=== PATIENT | male | born 1985 | race African-American/Black ===

== ENCOUNTER → 2018-02-22 08:45 | Outpatient (CLI) | payer OTHER, SELFPAY ==
--- NOTE | 2018-02-22 08:50 | RAD_ITS ---
STUDY: X-RAY - RIGHT ANKLE REASON FOR EXAM: Male, 32 years old. Pain, injury TECHNIQUE: 3 view(s) of the ankle. COMPARISON: 03/30/2016 FINDINGS: There is chronic ossification at the soft tissues adjacent to the periosteal surface of the posterior medial distal tibia/medial malleolus. There is no acute fracture. There is no osseous erosion. The ankle mortise is intact. RAD/Ankle min 3 Views IMPRESSION: Chronic posttraumatic changes No acute fracture No radiographic evidence of osteomyelitis Electronically Signed: Eddie Das MD at 10:28 EDT Tel , Service support ,
== END ==
PROVIDERS: Family Provider Family Medicine; PCP Family Medicine; Visit Provider Orthopaedic Surgery
DX: M25.571 Pain in right ankle and joints of right foot (principal)
CPT/HCPCS: 73610

== ENCOUNTER → 2018-03-08 12:48 | Outpatient (CLI) | payer OTHER, SELFPAY ==
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
== END ==
PROVIDERS: Family Provider Family Medicine; PCP Family Medicine; Visit Provider Orthopaedic Surgery
DX: M25.571 Pain in right ankle and joints of right foot (principal); M24.071 Loose body in right ankle; G89.29 Other chronic pain
CPT/HCPCS: 73721

== ENCOUNTER → 2025-01-22 | Outpatient (CLI) | payer BC, SELFPAY ==
[2025-01-22 13:08] LABS: Absolute Lymphocyte Count 1.35 X10^3/uL (0.83-4.51); Absolute Neutrophil Count 2.1 X10^3/uL (2.0-7.7); Basophil# 0.07 X10^3/uL; Basophil% 1.8 % (0-1); Eosinophil# 0.09 X10^3/uL; Eosinophils% 2.3 % (0-5); Hematocrit 41.7 % (40-54); Hemoglobin 13.3 g/dL (13.0-16.5); Lymphocyte # 1.35 X10^3/ul (0.83-4.51); Lymphocyte % 34.4 % (19-41); Mean Corp Hgb Conc 31.9 g/dL (32-36); Mean Corpuscular Hgb 26.7 pg (27.0-32.0); Mean Corpuscular Volume 83.6 fL (80-94); Monocyte# 0.33 X10^3/uL; Monocyte% 8.4 % (0-10); NRBC Flagged by Analyzer 0 % (0-5); Neutrophil # 2.07 X10^3/uL (2.7-7.7); Neutrophil % 52.8 % (47-70); Platelet Count 182 K/mm3 (150-450); RBC Distribution Width SD 42.5 fl (35.1-43.9); Red Blood Count 4.99 M/mm3 (4.6-6.2); White Blood Count 3.9 K/mm3 (4.4-11.0)
[2025-01-22 13:47] LABS: Cholesterol 176 mg/dL (<=200); High Density Lipoprotein 62 mg/dL; Low Density Lipoprotein Calc. 103 mg/dL; PSA,Total - Annual Screen 0.46 ng/mL (0.02-4.00); Triglycerides 55 mg/dL; Very Low Density Lipoprotein 11 mg/dL (5-40); cholesterol:hdl ratio screen 2.84
[2025-01-22 14:16] LABS: ALB/GLOB Ratio 1.8 RATIO (0.9-2.4); AST(SGOT) 26 U/L (<=37); Alanine Aminotransfer ALT/SGPT 12 U/L (<=46); Albumin, Serum 4.5 g/dL (3.5-5.0); Alkaline Phosphatase 68 U/L (40-129); Anion Gap 11 (5-15); BUN 14 mg/dL (4-19); BUN/Creat Ratio 11.8 RATIO (10-20); Calcium,Total 9.2 mg/dL (7.6-11.0); Carbon Dioxide 24.8 mmol/L (21.0-32.0); Chloride 106 mmol/L (98-108); Creatinine, Serum 1.14 mg/dL (0.70-1.20); EST Glomerular Filtration Rate 83 (>60); Globulin 2.6 g/dL (2.2-4.2); Glucose 91 mg/dL (70-99); Protein, Total 7.1 g/dL (5.9-8.4); Sodium Level 141 mmol/L (133-145); Total Bilirubin 0.44 mg/dL (0.00-1.30)
[2025-01-22 20:34] LABS: Hemoglobin A1c 5.7 % (<=5.6)
== END | disposition home or self-care (01) ==
LOC: VSLAB 09:05
PROVIDERS: PCP Family Medicine; Visit Provider Family Medicine
DX: Z13.6 Encounter for screening for cardiovascular disorders (principal); Z13.228 Encounter for screening for other metabolic disorders; Z12.5 Encounter for screening for malignant neoplasm of prostate
CPT/HCPCS: 36415; 80053; 80061; 83036; 84153; 84443; 85025; G0103

== ENCOUNTER 2025-03-25 21:39 | Emergency (ER) | payer BC, MEDICAID, SELFPAY ==
[2025-03-25 21:39] VITALS: BP 143/80; PULSE 64; RESP 18; TEMP 36.2; O2SAT 100; BMI 27.3
--- NOTE | 2025-03-25 21:54 | EDS_ITS ---
HPI History of Present Illness Chief Complaint: Shortness of Breath Informant: patient Onset/Context/Timing Onset: Today Context: Sudden Onset Timing: Continuous Quality: Sharp Location: Right lower ribs Worsened by: Deep breathing Relieved by: Nothing Narrative Narrative: Patient presents with right rib pain that began tonight. Patient states he fell and landed on his right ribs. Patient describes his pain as sharp. Patient states it is worse with deep breathing. Patient states it is mainly over the right lower ribs. Patient denies any shortness of breath. Patient states it just hurts to breathe. Patient admits to some chills. Patient denies any fevers. Patient denies any nausea or vomiting. Patient denies any head injury or loss of consciousness. Patient denies any other injuries. [facility] Medical History Adjustment disorder Encounter for sterilization Difficulty walking involving foot Pain of right lower extremity due to injury Local infection of wound Fracture of lower limb, open Foreign body of hand Home Medications ?Medication ?Instructions ?Recorded ?Last Taken ?Type naproxen 500 mg tablet 500 mg PO BID PRN #20 tabs 0 03/25/25 Unknown Rx Allergy/AdvReac Type Severity Reaction Status Date / Time No Known Allergies Allergy Verified 03/25/25 21:39 Surgical History ankle surgery Social History Smoking Status: Current every day smoker tobacco type: cigarettes alcohol intake: never substance use type: does not use ROS ROS ED Constitutional Constitutional ED: Reports chills and subjective; Denies fever(s) Eyes Eyes: Denies blurry vision or change in vision ENT ENT ED: Denies rhinorrhea or sore throat Cardiovascular Cardiovascular: Reports chest pain; Denies palpitations Respiratory/Chest Respiratory/Chest: Reports cough; Denies dyspnea Gastrointestinal Gastrointestinal: Denies nausea or vomiting Genitourinary Genitourinary ED: Denies dysuria or hematuria Musculoskeletal Musculoskeletal: Denies back pain or neck pain Integumentary Denies abscess or rash Neurologic Neurologic: Denies headache(s) or weakness Allergic/Immunologic Allergic/Immunologic ED: Denies mouth swelling or urticaria EXAM Physical Exam Const Vital Signs: 03/25/25 21:39 03/25/25 21:55 03/25/25 23:39 Temperature 97.2 F L Temperature Source Temporal Pulse Rate 64 77 Respiratory Rate 18 16 Respiratory Effort Normal Respiratory Depth Normal Respiratory Pattern Normal Blood Pressure 143/80 H 130/80 H Blood Pressure Mean 101 96 Pulse Ox 100 99 Oxygen Delivery Method Room Air Room Air Room Air Positive well nourished and well developed General Appearance ED: well developed and NAD HEENT Reports moist mucous membranes Neck supple and no JVD Chest Wall Chest Narrative: There is tenderness over the right lower ribs along the costochondral junction. There is no bony crepitance or step-off. There is no edema or ecchymosis. There is no subcutaneous emphysema noted. Resp normal respiratory effort Auscultation: diminished lung sounds right Cardio regular rate and regular rhythm GI non-tender and non-distended Palpation: soft Neuro oriented x3, CN's II-XII intact bilaterally and no sensory deficits noted Sensorium / Orientation: alert Motor Exam: strength 5/5 throughout Psych mental status grossly normal MDM MDM MDM Narrative Medical decision making narrative: Differential diagnosis includes rib fracture, contusion, pneumothorax, and costochondritis. X-rays of the right ribs and chest will be obtained to assess for rib fracture and pneumothorax. Radiography Diagnostic Testing: Clinical Impression(s) from Imaging Studies Ribs w/Chest X-Ray 03/25/25 22:20 IMPRESSION: No evidence of acute rib fracture. Reading Location: [place] [id number] X-rays of the right ribs were obtained. There are 5 views. On my independent interpretation, there is no acute rib fracture. There is no pneumothorax. There is no acute cardiopulmonary process. Radiologist also interpreted the x- rays and agrees. Treatment and Re-Evaluation :: Patient was given a dose of Naprosyn here. Patient was advised of his findings. Patient was given prescription for Naprosyn. Patient was instructed to use ice to the right ribs. Patient was instructed to take 10-15 deep breaths every hour while awake to prevent atelectasis and pneumonia. Patient was instructed to follow-up with his primary care physician in 5 to 7 days. Patient was instructed to return if worse in any way. Patient understood and was agreeable with the plan. All questions were answered. Discharge Plan Triage Chief Complaint: Shortness of Breath ED Provider: Dougie Noel Dx/Rx/DC Orders Clinical Impression: Contusion of chest wall, Tobacco use Instructions: ED Bruise, Rib Prescriptions: New naproxen 500 mg tablet 500 mg PO BID PRN Qty: 20 0RF Primary Care Provider: Cherelle Wilkins Referrals: Cherelle Wilkins, DO [Primary Care Provider] - 5-7 Days Print Language: Bel[place]ian Disposition Disposition: Home, Self Care
--- NOTE | 2025-03-25 22:20 | RAD_ITS ---
PROCEDURE: RIBS UNI MIN 3V W/PA CHEST 03/25/2025 REASON FOR EXAM: INJURY TECHNIQUE: Frontal and bilateral oblique views of the bilateral ribs. COMPARISON: None. FINDINGS: Findings: Heart is normal in size. The mediastinum is normal in contour. The lungs are clear. Other: No evidence of acute rib fracture. RAD/Ribs Uni Min 3V w/PA Chest IMPRESSION: No evidence of acute rib fracture. Reading Location: [place] [id number]
[2025-03-25] MEDS: Naproxen 500 MG Tablet PO (22:48)
[2025-03-25 23:39] VITALS: BP 130/80; PULSE 77; RESP 16; O2SAT 99
== END 2025-03-26 00:08 | disposition home or self-care (01) ==
PROVIDERS: Emergency Provider Emergency Medicine; PCP Family Medicine; Visit Provider Emergency Medicine
DX: S20.211A Contusion of right front wall of thorax, initial encounter (principal); W19.XXXA Unspecified fall, initial encounter; F17.210 Nicotine dependence, cigarettes, uncomplicated
CPT/HCPCS: 71101; 99282

== ENCOUNTER → 2025-05-27 | Outpatient (CLI) | payer MEDICAID, SELFPAY ==
[2025-05-27 13:06] LABS: HIV Nonreactive (Nonreactive); Syphilis Antibodies Nonreactive (Nonreactive)
--- OUTSIDE RECORDS SUMMARY | 2025-05-27 17:43 | XMS RPT_ITS | CCD ---
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 LIPID PANEL, NONFASTINGon Cholesterol [Mass/Vol] 163 mg/dL <200 mg/dL [facility] HDL Cholesterol, Nonfasting 54 mg/dL >39 mg/dL [facility] LDL Cholesterol, Nonfasting 90 mg/dL <100 mg/dL [facility] LDL/HDL Ratio, Nonfasting 1.67 mg/dL <2.54 mg/dL [facility] Non HDL Cholesterol, Nonfasting 109 mg/dL <130 mg/dL [facility] Total Chol/HDL Ratio, Nonfasting 3.02 mg/dL <5.10 mg/dL [facility] Triglycerides, Nonfasting 94 mg/dL <150 mg/dL [facility] VLDL Cholesterol, Nonfasting 19 mg/dL <30 mg/dL [facility] Cholesterol [Mass/Vol] 163 mg/dL Normal <200 [facility] Comment on above: Order Comment: Speci men Type: BLOOD SPECIMEN Ordering Facility: [facility] Address: [address] [place] [address] Result Comment: <200 mg/dL, Desirable 200-239 mg/dL, Borderline high >239 mg/dL, High Performed By: #### L ELISSA, 75152-4, 3, #### [facility] CLIA [id number] [address] [place] [address] [place] HDL CHOLESTEROL, NF 54 mg/dL Normal >39 [facility] Comment on above: Order Comment: Speci men Type: BLOOD SPECIMEN Ordering Facility: [facility] Address: [address] [place] [address] Result Comment: 40-5 9 mg/dL, Acceptable >59 mg/dL, High: Negative risk factor for coronary heart disease <40 mg/dL, Low: Positive risk factor for coronary heart disease Performed By: #### L ELISSA, 31855-5, 3015-3, #### [facility] CLIA [id number] [address] [place] LDL CHOLESTEROL, NF 90 mg/dL Normal <100 [facility] Comment on above: Order Comment: Mack erickson Type: BLOOD SPECIMEN Ordering Facility: [facility] Address: [address] [place] [address] Result Comment: <100 mg/dL, Optimal 100-129 mg/dL, Near optimal/above optimal 130-159 mg/dL, Borderline high 160-189 mg/dL, High >189 mg/dL, Very high Secondary prevention optimal LDL Cholesterol levels are recommended to be < 70 mg/dL Performed By: #### L IPPIERRE, 57857-0, 3016-3, 52350-7 #### [facility] CLIA [id number] [address] [place] [address] [place] LDL/HDL RATIO, NF 1.67 mg/dL Normal <2.54 [facility] Comment on above: Order Comment: Mack erickson Type: BLOOD SPECIMEN Ordering Facility: [facility] Address: [address] [place] [address] Result Comment: Selena montero: 1. National Cholesterol Education Program ATP III Guideline At-A-Glance Quick Desk Reference: National Heart, Lung, and Blood [place]. National Institutes of Health. 2001: NIH Publication No. 01-3305. 2. An International Atherosclerosis Society position paper: global recommendations for the management of dyslipidemia: executive summary, Atherosclerosis. 2014: 232(2):410-413. Performed By: #### L IPNF, 61445-5, 6-3, #### [facility] CLIA [id number] [address] [place] [address] [place] NON HDL CHOL, NF 109 mg/dL Normal <130 [facility] Comment on above: Order Comment: Mack erickson Type: BLOOD SPECIMEN Ordering Facility: [facility] Address: [address] [place] [address] Result Comment: <130 mg/dL, Optimal 130-159 mg/dL, Near optimal/above optimal 160-189 mg/dL, Borderline high 190-219 mg/dL, High >219 mg/dL, Very high Secondary prevention optimal non HDL Cholesterol levels are recommended to be <100 mg/dL Performed By: #### L ELISSA, 62595-3, 3, #### [facility] CLIA [id number] [address] [place] [address] [place] T CHOL/HDL RATIO NF 3.02 mg/dL Normal <5.10 [facility] Comment on above: Order Comment: Speci men Type: BLOOD SPECIMEN Ordering Facility: [facility] Address: [address] [place], [place] [address] Performed By: #### L ELISSA, , 3016-01, #### [facility] CLIA [id number] [address] [place] [address] [place] TRIGLYCERIDES, NF 94 mg/dL Normal <150 [facility] Comment on above: Order Comment: Speci men Type: BLOOD SPECIMEN Ordering Facility: [facility] Address: [address] [place], [place] [address] Result Comment: <150 mg/dL, Normal 150-199 mg/dL, Borderline high 200-499 mg/dL, High >499 mg/dL, Very high Performed By: #### L ELISSA, , 3016-01, #### [facility] CLIA [id number] [address] [place], [place] [address] [place] VLDL CHOLESTEROL, NF 19 mg/dL Normal <30 [facility] Comment on above: Order Comment: Speci men Type: BLOOD SPECIMEN Ordering Facility: [facility] Address: [address] [place], [place] [id number] Performed By: #### L ELISSA, , 3016-01, #### [facility] CLIA [id number] [address] [place], [place] [address] [place] MAGNESIUMon 02-19-2024 Magnesium [Mass/Vol] 2.2 mg/dL 1.7 - 2 .3 mg/dL [facility] Magnesium SerPl-ncon 02-18 Magnesium [Mass/Vol] 2.2 mg/dL Normal 1.7-2.3 [facility] Comment on above: Order Comment: Speci men Type: BLOOD SPECIMEN Ordering Facility: [facility] Address: [address] [place] [address] Performed By: #### L IPNF, 96248-1, 3016-3, 01418-8 #### [facility] CLIA [id number] [address] [place] [address] [place] PAIN PANEL, UR QUANTon 02-18 1-Fdzavbqmzp-8,5-Dim ethyl-3,3-Diphenylpy rrolidine (EDDP) Confirm (U) [Mass/Vol] <6 Normal <6 [facility] Comment on above: Order Comment: Speci men Type: URINE SPECIMEN Ordering Facility: [facility] Address: [address] [place] [address] Result Comment: EDDP is a metabolite of methadone. Performed By: #### L [id number] #### [facility] CLIA [id number] [address] [place] [address] [place] 6-Monoacetylmorphine (6-ASIA) (U) [Mass/Vol] <5 Normal <5 [facility] Comment on above: Order Comment: Speci men Type: URINE SPECIMEN Ordering Facility: [facility] Address: [address] [place] [address] Result Comment: 6-MA M (6-monoacetylmorphine, also known as 6-acetylmorphine) is a unique metabolite of heroin. Presence of 6-ASIA indicates use of heroin. 6-ASIA is further metabolized to morphine and absence of 6-ASIA does not rule out the use of heroin. Performed By: #### L [id number] #### [facility] CLIA [id number] [address] [place] [address] [place] Amphetamine Confirm (U) [Mass/Vol] 416 ng/mL High <5 [facility] Comment on above: Order Comment: Speci men Type: URINE SPECIMEN Ordering Facility: [facility] Address: [address] [place] [address] Result Comment: Amph etamine may arise from amphetamine containing drugs (eg. Adderall and Benzedrine) or by metabolism of methamphetamine. Clobenzorex, famprofazone, fenethylline, fenproporex, and mefenorex contain amphetamine pro-drugs which can be metabolized to amphetamine. Selegiline is metabolized to both amphetamine and methamphetamine. Performed By: #### L [id number] #### [facility] CLIA [id number] [address] [place] [address] [place] Benzoylecgonine Confirm (U) [Mass/Vol] <24 Normal <24 [facility] Comment on above: Order Comment: Speci men Type: URINE SPECIMEN Ordering Facility: [facility] Address: [address] [place] [address] Result Comment: Alex oylecgonine is a metabolite of cocaine. Performed By: #### L [id number] #### [facility] CLIA [id number] [address] [place] [address] [place] Buprenorphine (U) [Mass/Vol] <20 Normal <20 [facility] Comment on above: Order Comment: Speci men Type: URINE SPECIMEN Ordering Facility: [facility] Address: [address] [place] [address] Performed By: #### L [id number] #### [facility] CLIA [id number] [address] [place] [address] [place] Cannabinoids Confirm (U) [Mass/Vol] <16 Normal <16 [facility] Comment on above: Order Comment: Speci men Type: URINE SPECIMEN Ordering Facility: [facility] Address: [address] [place] [address] Result Comment: Tetr ahydrocannabinol carboxylic acid (THCA) is a metabolite of ndbmw-2-noczckemuezwqrhwsxjb which is the main active component of marijuana. Performed By: #### L [id number] #### [facility] CLIA [id number] [address] [place] [address] [place] Codeine Confirm (U) [Mass/Vol] <11 Normal <11 [facility] Comment on above: Order Comment: Speci men Type: URINE SPECIMEN Ordering Facility: [facility] Address: [address] [place] [address] Performed By: #### L [id number] #### [facility] CLIA [id number] [address] [place] [address] [place] Dihydrocodeine Confirm (U) [Mass/Vol] <5 Normal <5 [facility] Comment on above: Order Comment: Speci men Type: URINE SPECIMEN Ordering Facility: [facility] Address: [address] [place] [address] Performed By: #### L [id number] #### [facility] CLIA [id number] [address] [place] [address] [place] fentaNYL Confirm (U) [Mass/Vol] <6 Normal <6 [facility] Comment on above: Order Comment: Speci men Type: URINE SPECIMEN Ordering Facility: [facility] Address: [address] [place] [address] Performed By: #### L [id number] #### [facility] IA [id number] [address] [place] [address] [place] HYDROcodone Confirm (U) [Mass/Vol] <8 Normal <8 [facility] Comment on above: Order Comment: Speci men Type: URINE SPECIMEN Ordering Facility: [facility] Address: [address] [place] [address] Result Comment: Hydr ocodone is a metabolite of dihydrocodeine. Performed By: #### L [id number] #### [facility] CLIA [id number] [address] [place] [address] [place] HYDROmorphone Confirm (U) [Mass/Vol] <5 Normal <5 [facility] Comment on above: Order Comment: Speci men Type: URINE SPECIMEN Ordering Facility: [facility] Address: [address] [place] [address] Result Comment: Hydr omorphone is a metabolite of hydrocodone. Performed By: #### L [id number] #### [facility] CLIA [id number] [address] [place] [address] [place] Methadone Confirm (U) [Mass/Vol] <16 Normal <16 [facility] Comment on above: Order Comment: Speci men Type: URINE SPECIMEN Ordering Facility: [facility] Address: [address] [place] [address] Performed By: #### L [id number] #### [facility] CLIA [id number] [address] [place] [address] [place] Methamphetamine Confirm (U) [Mass/Vol] 123 ng/mL High <8 [facility] Comment on above: Order Comment: Speci men Type: URINE SPECIMEN Ordering Facility: [facility] Address: [address] [place] [address] Result Comment: Meth amphetamine may arise from methamphetamine containing drugs or metabolism. Selegiline is metabolized to both methamphetamine and amphetamine. Deqb-ikc-tfopeip inhalers for nasal decongestion may cause positive methamphetamine results. Methamphetamine is metabolized to amphetamine. Performed By: #### L [id number] #### [facility] CLIA [id number] [address] [place] [address] [place] Morphine Confirm (U) [Mass/Vol] <10 Normal <10 [facility] Comment on above: Order Comment: Speci men Type: URINE SPECIMEN Ordering Facility: [facility] Address: [address] [place] [address] Result Comment: Morp sukhwinder is a metabolite of codeine and heroin. Performed By: #### L [id number] #### [facility] CLIA [id number] [address] [place] [address] [place] Norbuprenorphine (U) [Mass/Vol] <20 Normal <20 [facility] Comment on above: Order Comment: Speci men Type: URINE SPECIMEN Ordering Facility: [facility] Address: [address] [place] [address] Result Comment: Norb uprenorphine is the primary active metabolite of buprenorphine. Performed By: #### L [id number] #### [facility] CLIA [id number] [address] [place] [address] [place] Norfentanyl Confirm (U) [Mass/Vol] <6 Normal <6 [facility] Comment on above: Order Comment: Speci men Type: URINE SPECIMEN Ordering Facility: [facility] Address: [address] [place] [address] Result Comment: Norf entanyl is a metabolite of fentanyl. Performed By: #### L [id number] #### [facility] CLIA [id number] [address] [place] [address] [place] Nortramadol (U) [Mass/Vol] <20 Normal <20 [facility] Comment on above: Order Comment: Speci men Type: URINE SPECIMEN Ordering Facility: [facility] Address: [address] [place] [address] Result Comment: Desm ethyltramadol is a metabolite of tramadol. Performed By: #### L [id number] #### [facility] CLIA [id number] [address] [place] [address] [place] NOTE,UR PAIN CARLIN Normal [facility] [place] Comment on above: Order Comment: Speci men Type: URINE SPECIMEN Ordering Facility: [facility] Address: [address] [place] [address] Result Comment: This test is for medical use only. This test was developed and its performance characteristics determined by [facility]'s [facility] Pathology and Laboratory Medicine [place] ([facility]). It has not been cleared or approved by the FDA. -[facility] is regulated under CLIA as qualified to perform high-complexity testing. This test is used for clinical purposes. It should not be regarded as investigational or for research. Performed By: #### L [id number] #### [facility] CLIA [id number] [address] [place] [address] [place] oxyCODONE Confirm (U) [Mass/Vol] <10 Normal <10 [facility] Comment on above: Order Comment: Speci men Type: URINE SPECIMEN Ordering Facility: [facility] Address: [address] [place] [address] Performed By: #### L [id number] #### [facility] CLIA [id number] [address] [place] [address] [place] oxyMORphone Confirm (U) [Mass/Vol] <5 Normal <5 [facility] Comment on above: Order Comment: Speci men Type: URINE SPECIMEN Ordering Facility: [facility] Address: [address] [place] [address] Result Comment: Oxym orphone is a metabolite of oxycodone. Performed By: #### L [id number] #### [facility] CLIA [id number] [address] [place] [address] [place] traMADol Confirm (U) [Mass/Vol] <25 Normal <25 [facility] Comment on above: Order Comment: Speci men Type: URINE SPECIMEN Ordering Facility: [facility] Address: [address] [place] [address] Performed By: #### L [id number] #### [facility] CLIA [id number] [address] [place] [address] [place] SPECIMEN VALIDITY, URINEon 0 02-19-2024 CHROMATE,URINE <10 Normal <50 [facility] Comment on above: Order Comment: Speci men Type: URINE SPECIMEN Ordering Facility: [facility] Address: [address] [place] [address] Performed By: #### L [id number] #### [facility] CLIA [id number] [address] [place] [address] [place] CREATININE,URINE 101.2 mg/dL Normal 20.0-300.0 [facility] Comment on above: Order Comment: Speci men Type: URINE SPECIMEN Ordering Facility: [facility] Address: [address] [place] [address] Performed By: #### L [id number] #### [facility] CLIA [id number] [address] [place] [address] [place] NITRITES,URINE <50 Normal <500 [facility] Comment on above: Order Comment: Speci men Type: URINE SPECIMEN Ordering Facility: [facility] Address: [address] [place] [address] Performed By: #### L [id number] #### [facility] CLIA [id number] [address] [place] [address] [place] OXIDANTS,URINE <38 Normal <200 [facility] Comment on above: Order Comment: Speci men Type: URINE SPECIMEN [facility] [facility] Address: [address] [place] [address] Performed By: #### L [id number] #### [facility] CLIA [id number] [address] [place] [address] [place] pH (U) 7.5 [pH] Normal 4.5-8.0 [facility] Comment on above: Order Comment: Speci men Type: URINE SPECIMEN Ordering Facility: [facility] Address: [address] [place] [address] Performed By: #### L [id number] #### [facility] CLIA [id number] [address] [place] [address] [place] SPEC GRAVITY,UR 1.022 Normal 1.003-1.035 [facility] Comment on above: Order Comment: Speci men Type: URINE SPECIMEN Ordering Facility: [facility] Address: [address] [place] [address] Performed By: #### L [id number] #### [facility] CLIA [id number] [address] [place] [address] [place] SPECIMEN VALIDITY QUALITY Specimen quality results within acceptable limits Normal [facility] Comment on above: Order Comment: Speci men Type: URINE SPECIMEN Ordering Facility: [facility] Address: [address] [place] [address] Performed By: #### L [id number] #### [facility] CLIA [id number] [address] [place] [address] [place] THYROID STIMULATING HORMONEo n 02-19-2024 TSH Qn 0.809 m[IU]/L 0.270 - 4.200 mIU/L [facility] TSH SerPl-aCncon 02-19-2024 TSH Qn 0.809 m[IU]/L Normal 0.270-4.200 [facility] Comment on above: Order Comment: Speci men Type: BLOOD SPECIMEN Ordering Facility: [facility] Address: [address] [place] [address] Performed By: #### L [id number], [id number], 3016-3, 21322-5 #### [facility] CLIA [id number] [address] [place] [address] [place] CORONAVIRUS PCR [CCL]on 05-06 COVID 19 Result CUSTOMER CARE ASSOCIATE Negative Normal [facility] Comment on above: Result Comment: Nega tive for COVID19 (SARS CoV2) by PCR. This test was developed and its performance characteristics determined by [facility]'s [facility] [place]. This test has been authorized by FDA under an Emergency Use Authorization (EUA). This test has been validated in accordance with the FDA's Guidance Document Policy for Diagnostics Testing in Laboratories Certified to Perform High Complexity Testing under CLIA prior to Emergency use Authorization for Coronavirus Disease 2019 during the Public Health Emergency" issued on January 03, 2020. [facility] [address] [place] [address] Edward Concepcion III, M.D. [id number] Performed By: #### 2 [id number] #### [facility],[address] [place] [address] COVID 19 Source CUSTOMER CARE ASSOCIATE Nasopharyngeal Swab Normal [facility] Comment on above: Performed By: #### 2 [id number] #### [facility],[address] [place] [address] Coronavirus 0 COVID 19 Result CUSTOMER CARE ASSOCIATE Normal Negative for COVID19 (SARS CoV2) by PCR. [facility] Comment on above: Result Comment: Nega tive for This test was developed and its performance characteristics determined by [facility]'s [facility] [place]. This test has been authorized by FDA under an Emergency Use Authorization (EUA). This test has been validated in accordance with the FDA's Guidance Document "Policy for Diagnostics Testing in Laboratories Certified to Perform High Complexity Testing under CLIA prior to Emergency use Authorization for Coronavirus Disease 2019 during the Public Health Emergency" issued on January 03, 2020. COVID19 (SARS This test was developed and its performance characteristics determined by [facility]'s [facility] [place]. This test has been authorized by FDA under an Emergency Use Authorization (EUA). This test has been validated in accordance with the FDA's Guidance Document "Policy for Diagnostics Testing in Laboratories Certified to Perform High Complexity Testing under CLIA prior to Emergency use Authorization for Coronavirus Disease 2019 during the Public Health Emergency" issued on January 03, 2020. CoV2) by PCR. This test was developed and its performance characteristics determined by [facility]'s [facility] [place]. This test has been authorized by FDA under an Emergency Use Authorization (EUA). This test has been validated in accordance with the FDA's Guidance Document "Policy for Diagnostics Testing in Laboratories Certified to Perform High Complexity Testing under CLIA prior to Emergency use Authorization for Coronavirus Disease 2019 during the Public Health Emergency" issued on January 03, 2020. Coronavirus 2019 0 COVID 19 Source CUSTOMER CARE ASSOCIATE CUSTOMER CARE ASSOCIATE Normal [facility] Vital Signs Date Time Vital Sign Value Performing Clinician Faci lity 02-19-2024 13:01-0400 Body weight 91.17 kg Clementina Suppan MOTOR VEH[employer]LE PARTS INTERPRETER.CORRESPONDENCE SECTION SUPERVISOR Work Phone: [facility] 02-19-2024 13:01-0400 Diastolic blood pressure 60 mm[Hg] Clementina Suppan MOTOR VEH[employer] PARTS INTERPRETER.CORRESPONDENCE SECTION SUPERVISOR Work Phone: [facility] 02-19-2024 13:01-0400 Heart rate 83 /min Clementina Suppan MOT[employer] VEH[employer] PARTS INTERPRETER.CORRESPONDENCE SECTION SUPERVISOR Work Phone: [facility] 02-19-2024 13:01-0400 Respiratory rate 16 /min Clementina Suppan MOT[employer] VEH[employer]LE PARTS INTERPRETER.CORRESPONDENCE SECTION SUPERVISOR Work Phone: [facility] 02-19-2024 13:01-0400 SaO2% (BldA) [Mass fraction] 97 % Clementina Suppan MOTOR VEH[employer]LE PARTS INTERPRETER.CORRESPONDENCE SECTION SUPERVISOR Work Phone: [facility] 02-19-2024 13:01-0400 Systolic blood pressure 126 mm[Hg] Clementina Suppan MOTOR VEHICLE PARTS INTERPRETER.CORRESPONDENCE SECTION SUPERVISOR Work Phone: [facility] 03-09-2023 13:40-0400 Body weight 87.54 kg Janina Enriquez MD Work Phone: [facility] 03-09-2023 13:40-0400 Diastolic blood pressure 72 mm[Hg] Janina Enriquez MD Work Phone: [facility] 03-09-2023 13:40-0400 Heart rate 85 /min Janina Enriquez MD Work Phone: [facility] 03-09-2023 13:40-0400 SaO2% (BldA) [Mass fraction] 97 % Janina Enriquez MD Work Phone: [facility] 03-09-2023 13:40-0400 Systolic blood pressure 124 mm[Hg] Janina Enriquez MD Work Phone: [facility] 11-14-2022 14:21-0500 Diastolic blood pressure 74 mm[Hg] Johnson Ponce MD Work Phone: [facility] 11-14-2022 14:21-0500 Heart rate 92 /min Johnson Ponce MD Work Phone: [facility] 11-14-2022 14:21-0500 Respiratory rate 16 /min Johnson Ponce MD Work Phone: [facility] 11-14-2022 14:21-0500 SaO2% (BldA) [Mass fraction] 98 % Johnson Ponce MD Work Phone: [facility] 11-14-2022 14:21-0500 Systolic blood pressure 138 mm[Hg] Johnson Ponce MD Work Phone: [facility] Encounters Encounter Date Encounter Type Care Provider Facility Start: 03-25-2025 End: 03-26-2025 Emergency department patient visit Dougiecanelo Rowecarlo Facility:[facility] Start: 01-22-2025 End: 01-22-2025 ambulatory Cherelle Wilkins [facility] Facility:[facility] Start: 07-11-2024 End: 07-11-2024 ambulatory [facility] Facility:[facility] Start: 07-11-2024 End: 07-11-2024 Unlisted evaluation and management service Sherita Wyman APRN.[employer] Work Phone: Urology Comment on above: NO SHOW (Primary Dx) Start: 02-22-2024 Telephone encounter Clementnia Eugene APRN.CORRESPONDENCE SECTION SUPERVISOR Work Phone: [facility] Comment on above: Results; Med Change Request Start: 02-19-2024 End: 02-19-2024 ambulatory JANINA Kenney [facility] Facility:[facility] Start: 02-19-2024 Encounter for genera l adult medical examination without abnormal findings JANINA MARIYA [facility] Start: 02-19-2024 End: 02-19-2024 Office outpatient visit 25 minutes Clementina Eugene APRN.CORRESPONDENCE SECTION SUPERVISOR Work Phone: [facility] Comment on above: Screening for diabet es mellitus (Primary Dx); Screening for thyroid disorder; Screening cholesterol level; Wellness examination; Anxiety with depression; ADHD (attention deficit hyperactivity disorder), inattentive type Start: 02-19-2024 End: 02-19-2024 Patient encounter status Clementina Eugene APRN.CORRESPONDENCE SECTION SUPERVISOR Work Phone: [facility] Work Phone: Start: 02-19-2024 End: 02-19-2024 ambulatory Mallory Garcia [employer]S INTERPRETER.[employer] Work Phone: Telemedicine Comment on above: Treatment not availa ble (Primary Dx) Start: 02-19-2024 End: 02-19-2024 Telemedicine consultation with patient Mallory Garcia APRN.[employer] Work Phone: [facility] Start: 03-12-2023 Telephone encounter Janina Enriquez MD Work Phone: [facility] [place] Comment on above: Results Start: 03-09-2023 End: 03-09-2023 Patient encounter procedure Janina Enriquez MD Work Phone: [facility] [place] Comment on above: Microscopic hematuri a (Primary Dx); Rectal bleeding Start: 02-09-2023 End: 02-09-2023 Distance [facility] Janina Enriquez MD Work Phone: [facility] [place] Comment on above: Bipolar affective di sorder, remission status unspecified (HCC) (Primary Dx); Attention deficit hyperactivity disorder (ADHD), combined type Start: 01-31-2023 End: 01-31-2023 [facility] Janina Enriquez MD Work Phone: [facility] [place] Comment on above: Attention deficit hy peractivity disorder (ADHD), combined type (Primary Dx) Start: 01-03-2023 End: 01-03-2023 ambulatory Janina Enriquez MD Work Phone: [facility] [place] Comment on above: NO SHOW (Primary Dx) Start: 01-03-2023 End: 01-03-2023 Telemedicine consultation with patient Janina Enriquez MD Work Phone: [facility] [place] Start: 11-20-2022 Telephone encounter Janina Enriquez MD Work Phone: [facility] [place] Comment on above: Results Start: 11-14-2022 End: 11-14-2022 Patient encounter procedure Johnson Ponce MD Work Phone: [facility] [place] Comment on above: Attention deficit hy peractivity disorder (ADHD), combined type (Primary Dx); Marijuana use Start: 10-23-2022 End: 10-23-2022 [facility] Janina Enriquez MD Work Phone: [facility] [place] Comment on above: Attention deficit hy peractivity disorder (ADHD), combined type (Primary Dx) Start: 05-25-2020 End: 05-25-2020 Patient encounter procedure JANINA CARIAS [facility] Procedures Date Procedure Procedure Detail Performing Clinician Start: 02-19-2024 Adult depression screening assessment Sherita Wyman APRN.[employer] Work Phone: Start: 02-19-2024 Lipid 1996 panel - S pastor or Plasma Mallory Garcia APRN.[employer] Work Phone: Plan of Treatment Date Care Activity Detail Author Start: 02-18-2029 Lipid panel Lipid Screening [facility] Start: 02-03-2026 Urine microalbumin profile DTaP,Tdap,Td Vaccine (3 - Td or Tdap) [facility] Start: 02-18-2025 Anxiety Screening Anxiety Screening [facility] Start: 02-18-2025 Covid-19 Vaccine ( season) Covid-19 Vaccine () [facility] Comment on above: Postponed from 07/06 (Declined at this time) Start: 02-18-2025 Depression Screening Depression Scre ening [facility] Start: 07-06-2024 Covid-19 Vaccine ( season) Covid-19 Vaccine () [facility] Start: 07-06-2024 Influenza vaccination C [facility] Start: 05-20-2024 End: 05-20-2024 Patient encounter procedure 05/20/2024 8:00 AM EDT Office Visit [facility] [place] [address] [place] [id number] Clementina Eugene APRN.CORRESPONDENCE SECTION SUPERVISOR [address] [facility] [place] [id number] 3 month adhd f/u [facility] [place] Comment on above: 3 month adhd f/u Start: 02-19-2024 End: 05-20-2024 Hemoglobin A1c in Blood [facility] Work Phone: Comment on above: Expected: 02/19/2024 , Expires: 05/20/2024 Start: 02-19-2024 End: 05-20-2024 PAIN PANEL, UR [employer] [facility] Work Phone: Comment on above: Expected: 02/19/2024 , Expires: 05/20/2024 Start: 07-06-2023 Influenza vaccination INFLUENZ A (Season Ended) [facility] Start: 03-12-2023 End: 05-12-2023 Urinalysis complete panel - Urine URINALYSIS, WITH MICROSCOPIC Lab Routine Proteinuria, unspecified type Expected: 03/12/2023, Expires: 05/12/2023 [facility] Work Phone: Comment on above: Expected: 03/12/2023 , Expires: 05/12/2023 Start: 03-09-2023 End: 05-09-2023 Bacteria identified in Urine by Culture [facility] Work Phone: Comment on above: Expected: 03/09/2023 , Expires: 05/09/2023 Start: 03-09-2023 End: 05-09-2023 Urinalysis complete panel - Urine [facility] Work Phone: Comment on above: Expected: 03/09/2023 , Expires: 05/09/2023 Start: 11-14-2022 End: 01-14-2023 PAIN PANEL, UR QUANT [facility] Work Phone: Comment on above: Expected: 11/14/2022 , Expires: 01/14/2023 Start: 11-14-2022 End: 01-14-2023 TOX SCREEN ROUT UR [facility] Work Phone: Comment on above: Expected: 11/14/2022 , Expires: 01/14/2023 Start: 11-05-2022 DEPRESSION ASSESSMENT DEPRESSION ASS ESSMENT [facility] Start: 07-06-2022 Influenza vaccination INFLUENZA (#1) [facility] Start: 11-05-2021 DEPRESSION ASSESSMENT DEPRESSION ASS ESSMENT [facility] Start: 05-10-2021 Lipid panel Lipid Screening [facility] Start: 05-10-2021 LIPID SCREEN LIPID SCREEN [facility] Start: 2003 Hepatitis B Vaccine (1 of 3 - 19+ 3-dose series) Hepatitis B Vaccine (1 of 3 - 19+ 3-dose series) [facility] Start: 2003 Urine microalbumin profile DTAP,TDAP,TD (1 - Tdap) [facility] Start: 1990 PNEUMOCOCCAL (1 - PCV) PNEUMOCOCCAL (1 - PCV) [facility] Start: 1990 Pneumococcal vaccination Pneumococcal Vaccine (1 of 2 - PCV) [facility] Start: 1984 COVID-19 VACCINE (#1) COVID-19 VACCI NE (#1) [facility] Start: 1984 HEPATITIS B (1 of 3 - 3-dose series) HEPATITIS B (1 of 3 - 3-dose series) [facility] Hemoglobin.gastroint est inal.lower [Presence] in Stool by Immunoassay FECAL OCCULT BLOOD TEST Lab Routine Rectal bleeding Ordered: 03/09/2023 [facility] Work Phone: Comment on above: Ordered: 03/09/2023 PAIN PANEL, UR QUANT PAIN PANEL, UR QUANT Lab Routine Marijuana use 11/14/2022 3:01 PM EST [facility] Work Phone: SPECIMEN VALIDITY, URINE SPECIMEN VALIDITY, URINE Lab Routine Marijuana use 11/14/2022 3:01 PM EST [facility] Work Phone: [facility] Immunizations Immunization Date Immunization Notes Care Provider Cherry starks 11-01-2017 influenza virus vacc ine, unspecified formulation Mallory Digennaro MOTOR VEHICLE PARTS INTERPRETER.[employer]MI[employer]GAN[employer] Work Phone: [facility] 02-04-2016 tetanus toxoid, redu ira diphtheria toxoid, and acellular pertussis vaccine, adsorbed Mallory Digennaro MOTOR VEHICLE PARTS INTERPRETER.[employer] Work Phone: [facility] 04-17-2014 tetanus toxoid, redu ira diphtheria toxoid, and acellular pertussis vaccine, adsorbed Mallory Digennaro MOTOR VEHICLE PARTS INTERPRETER.[employer]MIST [employer]GAN[employer] Work Phone: [facility] Payers Date Payer Category Payer Self-pay 2023 Unknown KAEL FERRARI PPO [id number] 2023-Present [phone] [address] [place] [address] PPO [id number] 2023 Unknown [id number] 2022 Medicaid [id number] 2022 Medicaid [id number] 1984 Unknown [id number] Private Health Insurance [id number] Unknown [id number] Unknown [id number] Social History Date Type Detail Facility Start: 11-01-2017 End: 11-14-2022 Tobacco smoking status KSIS Smokes tobacco daily [facility] History of tobacco use Cigarette Smoker [facility] History of tobacco use Cigar Smoker [facility] Start: 11-01-2017 End: 03-09-2023 Cigarettes smoked current (pack per day) - Reported 1 [facility] Start: 11-01-2017 End: 11-14-2022 Tobacco use and exposure Smokeless tobacco non-user [facility] Start: 06-06-2022 End: 02-19-2024 Alcohol intake Current non-drinker of alcohol (finding) [facility] Start: 10-10-2022 History SDOH Alcohol Frequency 1 [facility] Start: 10-10-2022 History SDOH Alcohol Std Drinks 0 [facility] Start: 10-10-2022 History SDOH Social Connections Phone 2 [facility] Start: 10-10-2022 History SDOH Social Connections Living 3 [facility] Start: 10-10-2022 History SDOH Physica l Activity DPW 7 [facility] Start: 10-10-2022 History SDOH Physica l Activity MPS 12 [facility] Start: 10-10-2022 History SDOH Financial 5 [facility] Start: 08-25-2020 Education 21 [facility] Start: 1984 Sex Assigned At Male C [facility] Start: 10-10-2022 End: 03-09-2023 Social connection and isolation panel [facility] Do you belong to any clubs or organizations such as cheondoism groups, unions, fraternal or athletic groups, or school groups? No [facility] Are you now , , , , never or living with a partner? [facility] How often to you hav e a drink containing alcohol? Never [facility] How many standard dr inks containing alcohol do you have on a typical day? Patient does not drink [facility] Do you feel stress - tense, restless, nervous, or anxious, or unable to sleep at night because your mind is troubled all the time - these days [OSQ] Not at all [facility] (I/We) worried wheth er (my/our) food would run out before (I/we) got money to buy more. Never true [facility] In the past 12 month s, was there a time when you were not able to pay the mortgage or rent on time? Yes [facility] Start: 09-23-2020 Gender identity Identifies as male gender (finding) [facility] Start: 09-23-2020 Sexual orientation Heterosexual (fin satish) [facility] Clinical Notes 03-08-2016 to 07-11-2024 Sherita Wyman APRN.CNP - 07/11/2024 4:30 PM EDTTelephone Encounter - Robin Amador RN - 02/25/2024 10:15 AM EDTTelephone Encounter - Robin Amador RN - 02/25/2024 10:15 AM EDT Note Date & Type Note Facility 07-11-2024 History of Presen t illness Narrative The patient did not show up for this appointment. documented in this encounter [facility] 07-11-2024 Note HNO ID: [id number] Author: SHERITA WYMAN APRN.[facility] Service: ? Author Type: Nurse Practitioner Type: Progress Notes Filed: 07/11/2024 16:48 Note Text: The patient did not show up for this appointment. [facility] 02-25-2024 Telephone encounter Note Pt returned called and pt notified of Monalisa Eugene's instructions, information and results. Pt aware to stop Prozac. He states he took his Prozac with the 4 days of Strattera. He will stop it now. Will be starting the 80 mg Strattera now. [facility] 02-25-2024 Miscellaneous Notes Pt returned called and pt notified of Monalisa Eugene's instructions, information and results. Pt aware to stop Prozac. He states he took his Prozac with the 4 days of Strattera. He will stop it now. Will be starting the 80 mg Strattera now. Left message for patient to return call. Ashley Byrnes Ma Please call patient and let him know that the current drug panel was negative. However, I did check about allowing him to proceed with a controlled substance and policy says no. The reason being, restarting in amphetamine can bring on that addiction. However, the atomoxetine should help to control his ADHD. We could increase it if needed. He should stop the Prozac when starting this. I did send an order to his pharmacy. Other labs: He is not diabetic, cholesterol levels look good. Thyroid screening normal, magnesium normal, kidney function and liver functions normal. Blood counts were also normal. Sorry for the miscommunication. documented in this encounter [facility] 02-25-2024 Telephone encounter Note Left message for patient to return call. Ashley Byrnes Ma [facility] 02-22-2024 Telephone encounter Note Please call patient and let him know that the current drug panel was negative. However, I did check about allowing him to proceed with a controlled substance and policy says no. The reason being, restarting in amphetamine can bring on that addiction. However, the atomoxetine should help to control his ADHD. We could increase it if needed. He should stop the Prozac when starting this. I did send an order to his pharmacy. Other labs: He is not diabetic, cholesterol levels look good. Thyroid screening normal, magnesium normal, kidney function and liver functions normal. Blood counts were also normal. Sorry for the miscommunication. 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 Author Type: Clinical Nurse Specialist Type: Progress Notes Filed: 02/19/2024 13:22 Note Text: This is a 38 year old male who presents today with: Patient presents with: ADD/ADHD Follow up: Would like to restart treatment HISTORY OF PRESENT ILLNESS: Neto Lewis is a 38 year old male. Patient presents with: ADD/ADHD Follow up: Would like to restart treatment Depression screen is positive. Doesn't have prazac any longer, not sure if helpful. "I didn't probably give it a chance". Wants Adderall renewed. REVIEW OF SYSTEMS GENERAL: No weight loss, malaise or fevers/chills HEENT: Negative for frequent or significant headaches, No changes in hearing or vision. NECK: Negative for lumps, goiter, pain and significant neck swelling RESPIRATORY: Negative for cough, hemoptysis, wheezing, dyspnea or shortness of breath CARDIOVASCULAR: Negative for chest pain, leg swelling, orthopnea, or palpitations GI: No nausea, vomiting, or diarrhea/constipation. No hematochezia/melena. No heartburn or reflux symptoms. : No history of dysuria, frequency or incontinence MUSCULOSKELETAL: Negative for joint pain or swelling. SKIN: Negative for lesions, rash, and itching ENDOCRINE: Negative for cold or heat intolerance, polyuria, polydipsia and goiter NEURO: No history of headaches, syncope, paralysis, seizures or tremors MOOD: Positive depression, no anxiety, denies suicidal ideation. PAST MEDICAL HISTORY: PAST MEDICAL HISTORY Diagnosis Date ADHD (attention deficit hyperactivity disorder) Depression PAST SURGICAL HISTORY Procedure Laterality Date PAST SURGICAL HISTORY OF 03/03/2016 fix dislocated open fracture on right ankle VASECTOMY 01/05/2021 Rboert Cebul ALLERGIES Patient has no known allergies. MEDICATIONS Current Outpatient Medications Medication Sig FLUoxetine (PROZAC) 20 mg capsule Take 20 mg by mouth once daily. No current facility-administered medications for this visit. No family history on file. Social History Tobacco Use Smoking status: Every Day Packs/day: 1 Types: Cigars, Cigarettes Smokeless tobacco: Never Substance Use Topics Alcohol use: No Drug use: No EXAM: BP 126/60 Pulse 83 Resp 16 Wt 91.2 kg (201 lb) SpO2 97% BMI 27.26 kg/m? PHYSICAL EXAM: General Appearance: Well appearing, alert, in no acute distress, well-hydrated, well nourished.. Skin: Skin color, texture, turgor normal, no suspicious rashes or lesions. Head: Normocephalic, no masses, lesions, tenderness or abnormalities. Eyes: Anicteric sclera. Pupils are equally round and reactive to light. Extraocular movements are intact. . Ears: some mild erythema of tympanic membranes. Nose/Sinuses: binates red and inflamed. Oropharynx: Lips, mucosa, and tongue normal, teeth and gums normal, oropharynx normal. Neck: Supple, no adenopathy; thyroid symmetric, normal size, no bruits. Lungs: Lungs clear to auscultation. No wheezing, rhonchi, rales.. Heart: RRR without murmur, gallop, or rubs. No ectopy. Abdomen: Normal abdominal exam, Abdomen soft, non-tender. Bowel sounds normal. No masses, organomegaly. Extremities: No deformities, edema, skin discoloration, clubbing or cyanosis. Good capillary refill. . LABS: pending labs ASSESSMENT/PLAN: 1. Screening for diabetes mellitus - ICD9: V77.1, ICD10: Z13.1 (primary diagnosis) Check HgA1c 2. Screening for thyroid disorder - ICD9: V77.0, ICD10: Z13.29 Check TSH 3. Screening cholesterol level - ICD9: V77.91, ICD10: Z13.220 Check lipids 4. Wellness examination - ICD9: V70.0, ICD10: Z00.00 - Counseled on healthy diet and regular exercise 5. Anxiety with depression - ICD9: 300.4, ICD10: F41.8 Renew Prozac 6. ADHD (attention deficit hyperactivity disorder), inattentive type - ICD9: 314.00, ICD10: F90.0 UDS first, consider Adderall if ok OARRS checked Discussed treatment plan and patient voices understanding. Patient's questions answered appropriately. Medications and potential side effects were discussed and patient voices understanding. Return to the office as scheduled or as needed for worsening/no improvement. Clementina Eugene, SHANNEN.CORRESPONDENCE SECTION SUPERVISOR The patient indicates understanding of these issues and agrees with the plan. [facility] 02-19-2024 History of Presen t illness Narrative This is a 38 year old male who presents today with: Patient presents with: ADD/ADHD Follow up: Would like to restart treatment HISTORY OF PRESENT ILLNESS: Neto Lewis is a 38 year old male. Patient presents with: ADD/ADHD Follow up: Would like to restart treatment Depression screen is positive. Doesn't have prazac any longer, not sure if helpful. "I didn't probably give it a chance". Wants Adderall renewed. REVIEW OF SYSTEMS GENERAL: No weight loss, malaise or fevers/chills HEENT: Negative for frequent or significant headaches, No changes in hearing or vision. NECK: Negative for lumps, goiter, pain and significant neck swelling RESPIRATORY: Negative for cough, hemoptysis, wheezing, dyspnea or shortness of breath CARDIOVASCULAR: Negative for chest pain, leg swelling, orthopnea, or palpitations GI: No nausea, vomiting, or diarrhea/constipation. No hematochezia/melena. No heartburn or reflux symptoms. : No history of dysuria, frequency or incontinence MUSCULOSKELETAL: Negative for joint pain or swelling. SKIN: Negative for lesions, rash, and itching ENDOCRINE: Negative for cold or heat intolerance, polyuria, polydipsia and goiter NEURO: No history of headaches, syncope, paralysis, seizures or tremors MOOD: Positive depression, no anxiety, denies suicidal ideation. PAST MEDICAL HISTORY: PAST MEDICAL HISTORY Diagnosis Date ADHD (attention deficit hyperactivity disorder) Depression PAST SURGICAL HISTORY Procedure Laterality Date PAST SURGICAL HISTORY OF 03/03/2016 fix dislocated open fracture on right ankle VASECTOMY 01/05/2021 Rboert Cebul ALLERGIES Patient has no known allergies. MEDICATIONS Current Outpatient Medications Medication Sig FLUoxetine (PROZAC) 20 mg capsule Take 20 mg by mouth once daily. No current facility-administered medications for this visit. No family history on file. Social History Tobacco Use Smoking status: Every Day Packs/day: 1 Types: Cigars, Cigarettes Smokeless tobacco: Never Substance Use Topics Alcohol use: No Drug use: No EXAM: BP 126/60 Pulse 83 Resp 16 Wt 91.2 kg (201 lb) SpO2 97% BMI 27.26 kg/m PHYSICAL EXAM: General Appearance: Well appearing, alert, in no acute distress, well-hydrated, well nourished.. Skin: Skin color, texture, turgor normal, no suspicious rashes or lesions. Head: Normocephalic, no masses, lesions, tenderness or abnormalities. Eyes: Anicteric sclera. Pupils are equally round and reactive to light. Extraocular movements are intact. . Ears: some mild erythema of tympanic membranes. Nose/Sinuses: binates red and inflamed. Oropharynx: Lips, mucosa, and tongue normal, teeth and gums normal, oropharynx normal. Neck: Supple, no adenopathy; thyroid symmetric, normal size, no bruits. Lungs: Lungs clear to auscultation. No wheezing, rhonchi, rales.. Heart: RRR without murmur, gallop, or rubs. No ectopy. Abdomen: Normal abdominal exam, Abdomen soft, non-tender. Bowel sounds normal. No masses, organomegaly. Extremities: No deformities, edema, skin discoloration, clubbing or cyanosis. Good capillary refill. . LABS: pending labs ASSESSMENT/PLAN: 1. Screening for diabetes mellitus - ICD9: V77.1, ICD10: Z13.1 (primary diagnosis) Check HgA1c 2. Screening for thyroid disorder - ICD9: V77.0, ICD10: Z13.29 Check TSH 3. Screening cholesterol level - ICD9: V77.91, ICD10: Z13.220 Check lipids 4. Wellness examination - ICD9: V70.0, ICD10: Z00.00 - Counseled on healthy diet and regular exercise 5. Anxiety with depression - ICD9: 300.4, ICD10: F41.8 Renew Prozac 6. ADHD (attention deficit hyperactivity disorder), inattentive type - ICD9: 314.00, ICD10: F90.0 UDS first, consider Adderall if ok OARRS checked Discussed treatment plan and patient voices understanding. Patient's questions answered appropriately. Medications and potential side effects were discussed and patient voices understanding. Return to the office as scheduled or as needed for worsening/no improvement. Clementina Eugene APRN.CNS The patient indicates understanding of these issues and agrees with the plan. documented in this encounter [facility] 02-19-2024 Note HNO ID: [id number] Author: MALLORY GARCIA APRN.CNP Service: ? Author Type: Nurse Practitioner Type: Progress Notes Filed: 02/19/2024 10:49 Note Text: Telemedicine Visit - Distance Health Virtual Visit Note Patient seen on [employer] Video Visit platform. Location of patient: [place] Janina Enriquez MD I have communicated my name and active licensure. The patient's identity and physical location were verified at the time of this visit. Either the patient or their legal sales representative [employer] has been informed of the risks and benefits of -- and alternatives to -- treatment through a remote evaluation and consents to proceed with the evaluation remotely. History of Present Illness Neto Lewis is a 38 year old year old male who presents for REFILL/ RESTART OF HIS ADDERALL MEDICATION PAST MEDICAL HISTORY Diagnosis Date ADHD (attention deficit hyperactivity disorder) Depression PAST SURGICAL HISTORY Procedure Laterality Date PAST SURGICAL HISTORY OF 03/03/2016 fix dislocated open fracture on right ankle VASECTOMY 01/05/2021 Rboert Cebul No family history on file. Social History Tobacco Use Smoking status: Every Day Packs/day: 1 Types: Cigars, Cigarettes Smokeless tobacco: Never Substance Use Topics Alcohol use: No Drug use: No Current Outpatient Medications Medication Sig FLUoxetine (PROZAC) 20 mg capsule Take 20 mg by mouth once daily. No current facility-administered medications for this visit. ALLERGIES No Known Allergies Video Exam (Examination performed via Video enabled technology) General appearance: Alert, oriented, pleasant, in NAD :Yes Ill appearing :No Lethargic appearing :No Respiratory distress :No ASSESSMENT/PLAN: 1. Treatment not available - ICD9: V64.3, ICD10: Z53.8 PT ADVISED THAT [facility] CAN NOT START OR REFILL SCHEDULED DRUGS BEST TO HAVE AN IN PERSON APPT W/ HIS PCP TO DISCUSS RESTARTING THAT MEDICATION PT VERBALIZED UNDERSTANDING Mallory Garcia APRN.[employer] If you let us know who your primary care provider is, we will send them a notification of today's visit through our electronic medical records system. Since not all providers have access to our notifications, we strongly encourage you to share the following record of today's visit with your primary care provider at your next visit. This will help in providing you the best care. If you do not have an established Primary Care physician and would like to continue care with a [facility] Virtual Primary Care physician, please ask your provider to place a "Establish Primary Care" order. Use [employer] to manage your care, wherever you are, 28/05, on your mobile device or computer. [employer] connects you to [employer] so you can access all your health information in one place and also schedule and request virtual appointments with primary care providers. [facility] 02-19-2024 History of Presen t illness Narrative Telemedicine Visit - Distance Health Virtual Visit Note Patient seen on [employer] Video Visit platform. Location of patient: [place] Janina Enriquez MD I have communicated my name and active licensure. The patient's identity and physical location were verified at the time of this visit. Either the patient or their legal sales representative [employer] has been informed of the risks and benefits of -- and alternatives to -- treatment through a remote evaluation and consents to proceed with the evaluation remotely. History of Present Illness Neto Lewis is a 38 year old year old male who presents for REFILL/ RESTART OF HIS ADDERALL MEDICATION PAST MEDICAL HISTORY Diagnosis Date ADHD (attention deficit hyperactivity disorder) Depression PAST SURGICAL HISTORY Procedure Laterality Date PAST SURGICAL HISTORY OF 03/03/2016 fix dislocated open fracture on right ankle VASECTOMY 01/05/2021 Rboert Cebul No family history on file. Social History Tobacco Use Smoking status: Every Day Packs/day: 1 Types: Cigars, Cigarettes Smokeless tobacco: Never Substance Use Topics Alcohol use: No Drug use: No Current Outpatient Medications Medication Sig FLUoxetine (PROZAC) 20 mg capsule Take 20 mg by mouth once daily. No current facility-administered medications for this visit. ALLERGIES No Known Allergies Video Exam (Examination performed via Video enabled technology) General appearance: Alert, oriented, pleasant, in NAD :Yes Ill appearing :No Lethargic appearing :No Respiratory distress :No ASSESSMENT/PLAN: 1. Treatment not available - ICD9: V64.3, ICD10: Z53.8 PT ADVISED THAT [facility]CO CAN NOT START OR REFILL SCHEDULED DRUGS BEST TO HAVE AN IN PERSON APPT W/ HIS PCP TO DISCUSS RESTARTING THAT MEDICATION PT VERBALIZED UNDERSTANDING Mallory Garcia APRN.CNP If you let us know who your primary care provider is, we will send them a notification of today's visit through our electronic medical records system. Since not all providers have access to our notifications, we strongly encourage you to share the following record of today's visit with your primary care provider at your next visit. This will help in providing you the best care. If you do not have an established Primary Care physician and would like to continue care with a [facility] Virtual Primary Care physician, please ask your provider to place a "Establish Primary Care" order. Use [employer] to manage your care, wherever you are, 28/05, on your mobile device or computer. [employer] connects you to [employer] so you can access all your health information in one place and also schedule and request virtual appointments with primary care providers. documented in this encounter [facility] 03-12-2023 Miscellaneous Notes Pt notified of results via [employer]. Ritu Hope Ma No answer. Mailbox full. Amna Hutton Let him know the urine does not show blood. It may be as we discussed. It does show small amount of protein which is likely just some cells we picked up on the outside as he urinated but can follow it. Recheck a ua in the lab in one month documented in this encounter [facility] 03-09-2023 History of Presen t illness Narrative Patient presents with: Hematuria HPI: Patient presents today for office visit for follow up. Hematuria: Found at [employer] physical 2 days ago. Was told significant amount. No complaints of pain. 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 No gross blood. No flank pain. No dysuria, frequency or discharge. Discussed it could be a false positive on the dip but will check. Also questions what could cause rectal bleeding? Has noted this on and off. Happens rarely. Is when he wipes.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 the information to criminally investigate or prosecute any alcohol or drug abuse patient.[facility] the event this information is protected by the Federal Confidentiality of Alcohol and Drug Abuse Patient Records regulations: The Federal rules restrict any use of the information to criminally investigate or prosecute any alcohol or drug abuse patient.[facility] the event this information is protected by the Federal Confidentiality of Alcohol and Drug Abuse Patient Records regulations: The Federal rules restrict any use of the information to criminally investigate or prosecute any alcohol or drug abuse patient.[facility] the event this information is protected by the Federal Confidentiality of Alcohol and Drug Abuse Patient Records regulations: The Federal rules restrict any use of the information to criminally investigate or prosecute any alcohol or drug abuse patient.[facility] the event this information is protected by the Federal Confidentiality of Alcohol and Drug Abuse Patient Records regulations: The Federal rules restrict any use of the information to criminally investigate or prosecute any alcohol or drug abuse patient.[facility] Reason for Visit (unrecogniz ed section and content) Reason Comments Follow Up Reason Comments Recheck Reason Comments Results Reason Comments No Show Reason Comments Hematuria Reason Comments Refill Request Reason Comments ADD/ADHD Follow up Would like to restar t treatment Reason Comments Results Med Change Request Reason Onset Date Comments No Show 07/11/2024 No show Care Teams (unrecognized sec tion and content) 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 Start Date End Date Janina Enriquez MD [address] [place], [place] [id number] PCP - General Family Medicine 12/23/15 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 Start Date End Date Janina Enriquez MD [address] [place], [place] [id number] PCP - General Family Medicine 12/23/15 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 Start Date End Date Janina Enriquez MD [address] [place], [place] [id number] PCP - General Family Medicine 12/23/15 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 Start Date End Date Janina Enriquez MD [address] [place] [address] PCP - General Family Medicine 12/23/15 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 Start Date End Date Janina Enriquez MD [address] [place] [address] PCP - General Family Medicine 12/23/15 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 Start Date End Date Janina Enriquez MD [address] [place] [address] PCP - General Family Medicine 12/23/15 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 Start Date End Date Janina Enriquez MD [address] [place] [address] PCP - General Family Medicine 12/23/15 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 This clinical summary was aggregated from multiple sources. Caution should be exercised in using it in the provision of clinical care. This summary normalizes information from multiple sources, and as a consequence, information in this document may materially change the coding, format and clinical context of patient data. In addition, data may be omitted in some cases. CLINICAL DECISIONS SHOULD BE BASED ON THE PRIMARY CLINICAL RECORDS. [facility] [employer] [facility]. provides no warranty or guarantee of the accuracy or completeness of information in this document.
[2025-05-28 05:08] LABS: HEPATITIS B SURFACE AG Negative (Negative); Hep C Antibodies Non Reactive (Non Reactive)
== END | disposition home or self-care (01) ==
LOC: VSLAB 09:41
PROVIDERS: PCP Family Medicine; Visit Provider Family Medicine
DX: Z72.51 High risk heterosexual behavior (principal)
CPT/HCPCS: 36415; 80074; 86695; 86696; 86703; 86780; 87491; 87591